=== PATIENT | female | born 1965 | race African-American/Black ===

== ENCOUNTER → 2020-12-15 | Outpatient (CLI) | payer BC ==
--- NOTE | 2020-12-15 13:06 | KCIC ---
EXAM: Bilateral feet, 3 views. HISTORY: Pain. COMPARISON: None. FINDINGS: 3 views of both feet are obtained. There is no acute fracture, dislocation or subluxation. There is minimal right greater than left first metatarsal phalangeal joint spurring. There are tiny p lantar spurs and there is minimal enthesopathy at the Achilles tendon insertions. IMPRESSION: 1. No acute osseous finding. 2. 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 Electronically signed by: Yamel Blank MD (12/15/2020 1:03 PM) [id number]
--- NOTE | 2020-12-15 13:08 | KCIC ---
EXAM: Bilateral hands, 3 views. HISTORY: Polyarthralgia. COMPARISON: None. FINDINGS: 3 views of both hands are obtained. There is degenerative spurring involving the right firs t carpometacarpal joint. There are prominent bilateral scapholunate joint space is. There is no forei gn body. IMPRESSION: 1. Mild right first carpal metacarpal joint osteoarthritis. 2. Prominent bilateral scapholunate joint spaces. This may be physiologic or due to scapholunate liga ment injury. Electronically signed by: Yamel Blank MD (12/15/2020 1:05 PM) [id number]
== END ==
LOC: KCIC 12:36
PROVIDERS: ATTEND Internal Medicine Rheumatology
DX: M19.072 Primary osteoarthritis, left ankle and foot (principal); M19.071 Primary osteoarthritis, right ankle and foot; M18.0 Bilateral primary osteoarthritis of first carpometacarpal joints
CPT/HCPCS: 73130-50; 73630-50

== ENCOUNTER → 2021-02-15 | Outpatient (CLI) | payer BC ==
--- NOTE | 2021-02-15 21:06 | KCIC ---
Bilateral hips HISTORY: Polyarthralgia, M 25.50 AP view was taken of the pelvis to include both hips. Lateral views were taken of each hip. There is extensive vascular calcification the aortic bifurcation. There is degenerative disc disease in the lo wer lumbar spine. Pelvis is intact. There is marked arthritis at the right hip with loss of the joint space. There is sclerosis and lucen cy at the femoral head which suggests ischemic necrosis. There is spurring on the femoral head from a rthritis. There is a similar pattern in the left hip with loss of joint space superiorly. There is lucency and sclerosis of the femoral head suggesting ischemic necrosis. IMPRESSION: 1. 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 Electronically signed by: Cornelius Burrows MD (02/15/2021 9:04 PM) [facility]
== END ==
LOC: KCIC 13:11
PROVIDERS: ATTEND Internal Medicine Rheumatology
DX: M16.0 Bilateral primary osteoarthritis of hip (principal); M51.36 Other intervertebral disc degeneration, lumbar region; M25.50 Pain in unspecified joint; I70.0 Atherosclerosis of aorta
CPT/HCPCS: 73521